=== PATIENT | female | born 1965 | race Two or more races ===

== ENCOUNTER 2025-05-22 11:48 | Emergency (ER) | payer OTHER ==
[~2025-05-22] VITALS: Ht 149.9 cm; Wt 113.4 kg
[2025-05-22] MEDS ORDERED: LOSARTAN POTAS100 MG PO (11:59)
[2025-05-22] MEDS ORDERED: AZOR 10-40 MG1 EACH PO (12:00)
[2025-05-22] MEDS ORDERED: KAPSPARGO SPRIN25 MG PO (12:01)
[2025-05-22] MEDS ORDERED: HORIZANT300 MG (12:01)
[2025-05-22] MEDS ORDERED: KETOROLAC TROMETHAMINE 60 MG VIAL IM ONE ×2 (12:15→12:30)
[2025-05-22] MEDS ORDERED: TRIAMCINOLONE ACETONIDE 40 MG/ML VIAL IM ONE (12:30)
[2025-05-22] MEDS ORDERED: TRIAMCINOLONE ACETONIDE 40 MG/ML VIAL ONE (12:30)
[2025-05-22] MEDS ORDERED: DICLOFENAC SODI75 MG PO (13:11)
[2025-05-22] MEDS ORDERED: NORFLEX100MG PO (13:11)
== END 2025-05-22 13:46 | disposition home or self-care (01) ==
LOC: ER 11:48
DX: M54.50 Low back pain, unspecified (principal); I10 Essential (primary) hypertension